=== PATIENT | female | born 1945 | race Caucasian/White ===

== ENCOUNTER → 2017-09-30 | Outpatient (CLI) | payer MEDICARE ==
--- NOTE | 2017-09-30 13:38 | Diagnostic Imaging Report ---
Indication: Cough Technique: 2 views of the chest Comparison: None Findings: Band have atelectasis or scarring in the right midlung is noted. Lungs and pleural spaces are otherwise clear. The heart size is normal. There is thoracolumbar scoliotic deformity Impression: No acute process Right midlung atelectasis or scar
== END | disposition home or self-care (01) ==
LOC: RAD 13:00
DX: R05 Cough (principal)
CPT/HCPCS: 71046

== ENCOUNTER 2019-01-13 07:38 | Day surgery (SDC) | payer OTHER ==
[2019-01-13] VITALS (9 sets, daily range): BP systolic 123–157; BP diastolic 54–83
[~2019-01-13] VITALS: Ht 157.5 cm; Wt 71.7 kg
--- NOTE | 2019-01-13 06:54 | Pre-Procedure Note/Attestation ---
Pre-Procedure Note/Attestation Complete Prior to Procedure Planned Procedure: left Procedure Narrative: left knee scope, medial and lateral meniscectomy Indications for Procedure Pre-Operative Diagnosis: left knee medial and lateral meniscus tear Attestation I attest that I discussed the nature of the procedure; its benefits; risks and complications; and alternatives (and the risks and benefits of such alternatives ), prior to the procedure, with the patient (or the patient's legal employer relations representative). I attest that, if there was a reasonable possibility of needing a blood transfusion, the patient (or the patient's legal employer relations representative) was given the [facility] standardized written summary, pursuant to the David Kaitlynn Blood Safety Act ([place] Health and Safety Code # 1645, as amended). I attest that I re-evaluated the patient just prior to the surgery and that there has been no change in the patient's H&P, except as documented below:none Paco Thorne MD Jan 13, 2019 06:54
[~2019-01-13 07:38] MED LIST: ceFAZolin sod 1 GM in NS 55 ML IVPB ONE; celeBREX 200mg Cap **SURGERY PATIENTS ONLY ORAL ONE; oxyCONTIN 20mg tab ORAL ONE
[2019-01-13] MEDS ORDERED: ATORVASTATIN CA20 MG ORAL (08:12)
[2019-01-13] MEDS ORDERED: ASPIR 8181 MG ORAL (08:12)
[2019-01-13] MEDS ORDERED: VITAMIN D1000 UNI1 ORAL (08:13)
[2019-01-13] MEDS ORDERED: VITAMIN B125000 MCG PO (08:13)
[2019-01-13] MEDS ORDERED: COQ-10100 M1 PO (08:13)
[2019-01-13] MEDS ORDERED: LR 1000ml ONE (08:30)
[2019-01-13] MEDS ORDERED: NS Irrig 4000ml IRRIG ONE (08:30)
--- NOTE | 2019-01-13 08:34 | Anethesia Preoperative Eval ---
Anesthesia Pre-op PMH/ROS General Date of Evaluation: Jan 13, 2019 Anesthesiologist: Andrea ASA Score: ASA 3 Mallampati Score Class I : Soft palate, uvula, fauces, pillars visible Class II: Soft palate, uvula, fauces visible Class III: Soft palate, base of uvula visible Class IV: Only hard plate visible Mallampati Classification: Class II Surgeon: Mati Diagnosis: Left knee pain Surgical Procedure: Left knee arthroscopy Anesthesia History: none Family History: no anesthesia problems Allergies: Coded Allergies: No Known Allergies (Unverified , 01/07/19) Medications: see eMAR Patient NPO?: Yes NPO Date: Jan 12, 2019 NPO Time: 22:00 Past Medical History Cardiovascular: Reports: HTN, other - HLD; Denies: CAD, TN, valve dz, arrhythmia Pulmonary: Denies: asthma, COPD, LUCY, other Gastrointestinal/Genitourinary: Denies: GERD, CRI, ESRD, other Neurologic/Psychiatric: Denies: dementia, CVA, depression/anxiety, TIA, other Endocrine: Denies: DM, hypothyroidism, steroids, other HEENT: Denies: cataract (L), cataract (R), glaucoma, NENANA (L), NENANA (R), other Hematology/Immune: Reports: other - left breast cancer; Denies: anemia, DVT, bleeding disorder Musculoskeletal/Integumentary: Reports: OA; Denies: RA, DJD, DDD, edema, other PSxH Narrative: Right CEA, T&A, LIHR, left lumpectomy, c/s X2, bilateral eye sx Anesthesia Pre-op Phys. Exam Physician Exam Last Vital Signs Date Time Temp Pulse Resp B/P (MAP) Pulse Ox O2 Delivery O2 Flow Rate FiO2 01/13/19 08:24 Room Air 01/13/19 08:05 97.8 60 18 123/55 97 Constitutional: NAD Cardiovascular: RRR Respiratory: CTA Airway Exam Mallampati Score: Class II MO: full ROM: full Anesthesia Pre-op A/P Labs see chart Studies Pre-op Studies: EKG - sr Risk Assessment & Plan Assessment: ASA III Plan: GA Status Change Before Surgery: No Pre-Antibiotics Drug: Ancef 1g Given Within 1 Hr of Incision: Yes Carolina Lee MD Jan 13, 2019 08:34
[2019-01-13] MEDS ORDERED: LR 1000ml 1,000 ML IVLG SCH ×2 (08:46→08:56)
[2019-01-13] MEDS ORDERED: Ropivacaine 5mg/ml Vial 30ml INJ ONE (08:56)
--- NOTE | 2019-01-13 08:57 | Anethesia Preoperative Eval ---
Anesthesia Pre-op PMH/ROS General Date of Evaluation: Jan 13, 2019 Time of Evaluation: 08:57 Anesthesiologist: Michael ASA Score: ASA 3 Mallampati Score Class I : Soft palate, uvula, fauces, pillars visible Class II: Soft palate, uvula, fauces visible Class III: Soft palate, base of uvula visible Class IV: Only hard plate visible Mallampati Classification: Class II Surgeon: Mati Diagnosis: L Knee Pain Surgical Procedure: L Knee Arthroscopy Anesthesia History: none Family History: no anesthesia problems Allergies: Coded Allergies: No Known Allergies (Unverified , 01/07/19) Medications: see eMAR Patient NPO?: Yes NPO Date: Jan 12, 2019 NPO Time: 22:00 Past Medical History Cardiovascular: Reports: other - HL, PVD HEENT: Reports: cataract (L), cataract (R) Hematology/Immune: Reports: other - L Breast Cancer PSxH Narrative: R carotid Endarterectomy Anesthesia Pre-op Phys. Exam Physician Exam Last Vital Signs Date Time Temp Pulse Resp B/P (MAP) Pulse Ox O2 Delivery O2 Flow Rate FiO2 01/13/19 08:24 Room Air 01/13/19 08:05 97.8 60 18 123/55 97 Constitutional: NAD Neurologic: CN 2-12 intact Cardiovascular: RRR Respiratory: CTA Gastrointestinal: S/NT/ND Airway Exam Mallampati Score: Class II MO: full ROM: limited Teeth: missing, intact Anesthesia Pre-op A/P Risk Assessment & Plan Assessment: ASA 3 Plan: GA, SED Status Change Before Surgery: No Pre-Antibiotics Dru Gram Ancef IV Given Within 1 Hr of Incision: Yes Time Given: 09:16 Carl Rodriguez MD Jan 13, 2019 08:57
[2019-01-13] MEDS ORDERED: Metoclopramide 10mg/2ml Inj IVP PRN ×2 (09:00)
[2019-01-13] MEDS ORDERED: Acetaminophen (Non formulary) 100 ML IV ONE (09:00)
[2019-01-13] MEDS ORDERED: fentaNYL 100 mcg/2 mL IV PRN ×2 (09:00)
[2019-01-13] MEDS ORDERED: oxyCODONE HCL/Acetaminophen 5/325mg ORAL PRN (09:00)
[2019-01-13] MEDS ORDERED: Propofol 200mg/20ml IV ONE (09:00)
[2019-01-13] MEDS ORDERED: Labetalol 5mg/ml 20ml vial IV PRN (09:00)
[2019-01-13] MEDS ORDERED: Hydromorphone 0.5mg/0.5ml inj IVP PRN ×2 (09:00)
[2019-01-13] MEDS ORDERED: Atropine Sulfate 0.4mg/ml inj IVP PRN (09:00)
[2019-01-13] MEDS ORDERED: LORazepam Inj 2mg/ml 1ml IV PRN ×2 (09:00)
[2019-01-13] MEDS ORDERED: DiphenhydrAMINE 50mg/ml Inj IVP PRN ×2 (09:00)
[2019-01-13] MEDS ORDERED: Dexamethasone 4mg/ml vial ONE (09:00)
[2019-01-13] MEDS ORDERED: Meperidine 50mg/ml Inj(FOR RIGORS ONLY) IVP PRN (09:00)
[2019-01-13] MEDS ORDERED: Lidocaine 1% MPF 10mg/ml 5ml ONE (09:00)
[2019-01-13] MEDS ORDERED: Midazolam 2mg/2ml Inj IVP PRN (09:00)
[2019-01-13] MEDS ORDERED: Ketorolac 30mg Inj IV PRN ×3 (09:00)
[2019-01-13] MEDS ORDERED: HYDROcodone/Acetamin 7.5/325 tab ORAL PRN (09:00)
[2019-01-13] MEDS ORDERED: HYDROcodone/Acetamin 5/325 tab ORAL PRN ×2 (09:00→09:30)
[2019-01-13] MEDS ORDERED: HYDROmorphone 1mg/ml Carpuject SUBQ PRN (09:30)
[2019-01-13] MEDS ORDERED: Tylenol #3 tab (300mg/30mg) ORAL PRN (09:30)
[2019-01-13] MEDS ORDERED: D5 1/2NS 1,000 ML IV SCH (09:30)
--- NOTE | 2019-01-13 09:46 | Immediate Post-Op Evaluation ---
Immediate Post-Op Evalulation Immediate Post-Op Evalulation Procedure: L Knee Arthroscopy Date of Evaluation: Jan 13, 2019 Time of Evaluation: 10:19 IV Fluids: 800 LR Blood Products: 0 Estimated Blood Loss: 10 Urinary Output: 0 Blood Pressure Systolic: 186 Blood Pressure Diastolic: 83 Pulse Rate: 63 Respiratory Rate: 16 O2 Sat by Pulse Oximetry: 100 Temperature (Fahrenheit): 98.5 Pain Score (1-10): 2 Nausea: No Vomiting: No Complications 0 Patient Status: awake, reacts, patent, none Hydration Status: adequate Dru Gram Ancef IV Given Within 1 Hr of Incision: Yes Time Given: 09:16 Carl Rodriguez MD Jan 13, 2019 09:46
--- NOTE | 2019-01-13 09:47 | 48 Hour Post Anesthesia Eval ---
Post Anesthesia Evaluation Procedure: L Knee Arthroscopy Date of Evaluation: Jan 13, 2019 Time of Evaluation: 12:32 Blood Pressure Systolic: 157 0: 72 Pulse Rate: 64 Respiratory Rate: 18 Temperature (Fahrenheit): 98.6 O2 Sat by Pulse Oximetry: 94 Airway: patent Nausea: No Vomiting: No Pain Intensity: 0 Hydration Status: adequate Cardiopulmonary Status: Stable Mental Status/LOC: patient returned to baseline Follow-up Care/Observations: 0 Post-Anesthesia Complications: 0 Follow-up care needed: ready to discharge Carl Rodriguez MD Jan 13, 2019 09:47
--- NOTE | 2019-01-13 09:57 | Brief Operative Note ---
Immediate Post Operative Note Operative Note Chief Complaint: left knee pain Pre-op Diagnosis: left knee medial and lateral meniscus tear Procedure: left knee scope, medial and lateral meniscectomy Post-op Diagnosis: same as pre-op Findings: consistent w/pre-op dx studies Surgeon: md vince Print Color Operator: sallie ndiaye Anesthesiologist: md bob Anesthesia: general Specimen: none Complications: none Condition: stable Fluids: ns Estimated Blood Loss: minimal Drains: none Implant(s) used?: No Ana Lilia Ndiaye Jan 13, 2019 09:57
--- NOTE | 2019-01-13 17:00 | Operative Note - Dictated ---
DATE OF OPERATION: 01/13/2019 PREOPERATIVE DIAGNOSIS: Left knee complex tear of the posterior horn body of the medial meniscus with unstable chondral flap. POSTOPERATIVE DIAGNOSES: 1. Left knee complex tear of the posterior horn body of the medial meniscus with unstable chondral flap and a flipped component in a horizontal cleavage tear variety as well as a vertical tear. 2. 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 3. Left knee loose fragments of cartilage cause mechanical symptoms in the left knee. 4. Left knee free edge tear of the body of the lateral meniscus. PROCEDURE: 1. Left knee arthroscopy and extensive intra-articular shaving. 2. Left knee resection of loose fragments of cartilage measuring 5 mm. 3. Left knee medial femoral chondroplasty. 4. Left knee partial medial meniscectomy involving 35% posterior horn body of the medial meniscus. 5. Left knee partial lateral meniscectomy involving 10% posterior horn body of the lateral meniscus. SURGEON: Paco Thorne M.D. MEDICAL STAFF DIRECTOR: Ana Lilia Chin PA-C. Wood Die Maker was present during the actual operative portion of the case and was important and essential part of the operation. During the operation, the assistant professor in family studies held and operated the arthroscopic camera for visualization, assisted by manipulating the leg to help with visualization, and helped with essential parts of the repair process as necessary such as operating surgical instruments under surgeon supervision, suture management, and wound closures. ANESTHESIOLOGIST: Carl Rodriguez M.D. ANESTHESIA: General LMA anesthesia. ESTIMATED BLOOD LOSS: Less than 20 mL. TOURNIQUET TIME: 35 minutes. COMPLICATIONS: None. BRIEF HISTORY: The patient is a pleasant 73-year-old female, who sustained an injury to her left knee. Initially, she had a small meniscus tear. However, subsequently after the injury, she appeared to have a large meniscus tear with extruded fragment. After full discussion of risks, benefits of the surgery, and complications associated with it including infection, bleeding, neurovascular complication, possibility of continued pain, possible pain from arthritis, possible need for further surgery including knee replacement and other complications that may arise, she opted for surgical treatment as described above. SURGICAL INDICATION: The patient is a 73-year-old female, who sustained the above injury to her knee. The patient was treated non-operative initially, but this did not alleviate the patients symptoms. Therefore, after discussing all non-surgical and surgical options, and discussing all foreseeable risk and benefits of surgery, the patient opted for surgical treatment as described above. PATIENT POSITIONING: The patient was brought to the operating room table and placed supine. All pressure points were well padded. General Anesthesia was induced and a well padded tourniquet was placed on the thigh. The lateral post was placed and positioned to allow for opening of the medial compartment of the knee without placing pressure over the fibular head. Patients entire leg was prepped and draped in the usual sterile fashion. Time out was performed and preop abx was given and after exsanguinating the lower extremity, the tourniquet was inflated to 275 mm of mercury. EXAMINATION OF THE KNEE UNDER ANESTHESIA: Before prepping and draping the knee and while the patient was relaxed under general anesthesia, the knee was examined for ROM, and anterior and posterior, medial and lateral, posterolateral, and posteromedial instability. Pivot shift testing was performed. There was no evidence of loss of motion or instability and the pivot shift testing was negative. PORTAL PLACEMENT: The lateral portal was placed with the knee flexed to 90 degrees at the level of inferior border of the patella in line with the lateral border of the patella. A cm skin incision was made with an eleven blade, and using a blunt obturator, the capsule was gently penetrated. Sterile saline solution was then infused inside the knee with the aid of a pump set at 35 mm mercury pressure. Under direct visualization, placement of the medial portal was preliminary judged using a spinal needle, and it was subsequently established using the same technique as the lateral portal. Care was given not to injure the cutaneous branches of the medial Saphenous nerve or the subcutaneous veins. DIAGNOSTIC ARTHROSCOPY: The suprapatellar patellar pouch was visualized. There was some chondral damage underneath the patella, although there was no unstable chondral flap. This was grade 2 and 3 chondromalacia. The medial and lateral patellar facets and trochlear groove articular cartilage was visualized. These structures were intact and were devoid of any articular cartilage damage. The medial plica shelf and the corresponding medial femoral condyle articular cartilage were visualized. There was no significantly thickening of the medial plica shelf and there were no kissing? lesion over the medial femoral condyle. The lateral gutter and the posterolateral corner of the knee were visualized. There were no loose bodies, and the popliteus tendon and other structures of the posterolateral corner of the knee were intact intra-articularly. At this point, the knee was placed in the figure of four position and the lateral compartment was entered. The lateral femoral condyle, lateral tibial plateau, and the anterior, body, and the posterior horn of the lateral meniscus were visualized and probed. The articular surfaces were intact and devoid of articular cartilage damage. There was free edge tear of the posterior horn body of the lateral meniscus involving 10% lateral meniscus. The knee was then placed at 90 degree and the ACL and PCL were visualized and probed. The ACL was completely intact on visualization and probing, and it had excellent tension. The PCL was completely intact on visualization and probing and it had excellent tension. The medial compartment was then entered and the medial femoral condyle, medial tibial plateau, and the anterior, body, and the posterior horn of the medial meniscus were visualized and probed. There was a chondral damage over the medial femoral condyle measuring 2 x 1.5 cm. This was in a weightbearing zone of the medial femoral condyle. There was a very large unstable chondral flap that was flipped and with impingement within the femur and the tibia through range of motion. There was a very complex tear of the posterior horn body of the medial meniscus with a horizontal cleavage component as well as vertical component. This involved a large extruded fragment was seen on the undersurface of the medial meniscus. The medial gutter was visualized. There was no evidence of defect or loose fragments. The scope was then brought back to the patella femoral compartment. OPERATIVE ARTHROSCOPY: At this point, all loose debris and fragments were removed with the use of suction motorized shaver. Specific attention was given to assure all visible loose fragments were irrigated out of the knee joint with pump inflow and cannula outflow system. For removal of loose body, the loose fragments were identified and visualized. Using combination of the shaver, suction, and graspers, these loose fragments were removed. These loose fragments measured approximately 5 mm. All debris left behind was removed with combination of carri and graspers. For patella femoral chondroplasty, the frayed articular cartilage of the undersurface of the patella and the trochlear groove were debrided using a motorized shaver. Suction was used to pull in the loose fragments and flaps of the cartilage and to minimize damage to the intact and well attached portion of the cartilage. This allowed for a smooth surface for the articular cartilage gliding. For lateral meniscectomy, at this point, attention was given to the lateral meniscus. Using combination of baskets and carri, the torn portion of the lateral meniscus was removed. Attention was given to remove all displaced and unstable portion of the lateral meniscus while maintaining as much of the functional portion of the meniscus as possible. Approximately, 10% of the posterior horn body of the meniscus was removed in this fashion. The transition between the meniscectomy portion and intact portion of the meniscus was smoothed out with combination of small baskets and carri. Excellent transition zone was obtained in this fashion. For medial meniscectomy, at this point, attention was given to the medial meniscus. Using combination of baskets and carri, the torn portion of the medial meniscus was removed. Attention was given to remove all displaced and unstable portion of the medial meniscus while maintaining as much of the functional portion of the meniscus as possible. Approximately, 35% of the posterior horn body of the medial meniscus was removed in this fashion. The transition between the meniscectomy portion and intact portion of the meniscus was smoothed out with combination of small baskets and carri. Excellent transition zone was obtained in this fashion. For medial compartment chondroplasty, care was given to the area of cartilage damage in the medial compartment. The frayed and loose fragments of articular cartilage were debrided using a motorized shaver. Suction was used to pull in the loose fragments and flaps of the cartilage and to minimize damage to the intact and well attached portion of the cartilage. This allowed for smooth surfaces for the articular cartilage. CONDITION AT DISCHARGE FROM OPERATING ROOM: The knee was irrigated with copious amount of normal saline at the end of the procedure. The scope was removed and the water was drained. The skin edges were re-approximated and sterile dressing was applied. All lap count and instrument counts were correct. Patient tolerated the procedure well without complications and was taken to the recovery room in stable conditions. Paco Thorne M.D. DR: ZAINA JOB#: [id number] CC:
== END 2019-01-13 12:30 | disposition home or self-care (01) ==
LOC: SUR 07:38
DX: S83.242A Other tear of medial meniscus, current injury, left knee, initial encounter (principal); S83.282A Other tear of lateral meniscus, current injury, left knee, initial encounter; M23.42 Loose body in knee, left knee; M94.262 Chondromalacia, left knee; F41.9 Anxiety disorder, unspecified; Z85.3 Personal history of malignant neoplasm of breast; M19.90 Unspecified osteoarthritis, unspecified site; I10 Essential (primary) hypertension; E78.5 Hyperlipidemia, unspecified; X58.XXXA Exposure to other specified factors, initial encounter; Y92.9 Unspecified place or not applicable
CPT/HCPCS: 29880; J0690; J1100; J2405; J2704; J2795; 94003; 94150